=== PATIENT | male | born 1985 | race Caucasian/White ===

== ENCOUNTER 2025-03-09 20:57 | Emergency (ER) | payer OTHER, SELFPAY ==
[2025-03-09 21:10] VITALS: BP 127/83; PULSE 91; RESP 16; TEMP 36.6; O2SAT 93; BMI 25.8
[2025-03-09] MEDS: cephALEXin 500 mg Capsule PO (21:20)
[2025-03-09] MEDS: tetanus-dipt-pertussis 0.5 mL SDV IM (21:21)
--- NOTE | 2025-03-09 22:06 | ED_ITS ---
HPI - Wound/Laceration General: Chief Complaint: Wound/Laceration Stated Complaint: L foot lac from chainsaw Time Seen by Provider: 03/09/25 21:04 Source: patient Mode of arrival: ambulatory Limitations: no limitations History of Present Illness: Patient is a 39-year-old male who presents the emergency department for laceration of left foot. He reportedly accidentally cut his foot through boot with a chainsaw, bleeding controlled on arrival and states she cleaned it thoroughly prior to coming in. Tetanus is not up-to-date. Minor pain reported at this time, no significant contamination. No other symptoms, has remained ambulatory. No neurovascular symptoms reported. Vitals normal. Onset (ago): minute(s) Extremity Location: Left: foot Place: home Patient tetanus UTD: No Context: accidental Associated symptoms: Reports no associated symptoms; Denies chills, fever(s), nausea or vomiting Treatments prior to arrival: bandage Related Data Previous Rx's ?Medication ?Instructions ?Recorded cephalexin 500 mg capsule 500 mg PO BID 7 days #14 cap s 03/09/25 Allergies Allergy/AdvReac Type Severity Reaction Status Date / Time Penicillins Allergy Unknown Verified 03/09/25 21:13 Review of Systems General: Reports: 10 or more systems reviewed and unremarkable except in HPI and below Const: Denies: fever(s) or chills Card: Denies: chest pain Resp: Denies: dyspnea GI: Denies: abdominal pain, nausea, vomiting or diarrhea Musc: Denies: extremity pain or joint pain Skin/Breast: Reports: skin pain, skin tenderness and new lesions (Laceration to left foot); Denies: rash Neuro: Denies: headache(s) Physical Exam Const: COMMON NORMALS: no acute distress, average body habitus, patient oriented x3, no limitations, healthy appearing, alert and well nourished HENMT: COMMON NORMALS: normocephalic and atraumatic HEAD & SCALP: norm ocephalic and atraumatic Neck/C-Spine: COMMON NORMALS: full ROM, no lymphadenopathy, supple and no meningeal signs Resp: COMMON NORMALS: normal respiratory effort, No use of accessory muscles and clear to auscultation bilaterally AUSCULTATION: clear to auscultation bilaterally Cardio: COMMON NORMALS: regular rate and regular rhythm RATE: regular rate RHYTHM: regular rhythm Extremity: COMMON NORMALS: full ROM and capillary refill normal NARRATIVE EXTREMITY EXAM: Neurovascular status intact to left foot. Neuro: COMMON NORMALS: patient oriented x3, moves all extremities, no focal motor deficits and no sensory deficits noted SENSORIUM/ORIENTATION: Yes alert MENINGEAL SIGNS: Yes no meningeal signs Skin: COMMON NORMALS: turgor normal NARRATIVE SKIN EXAM: Flap-like laceration to dorsum of left foot, measuring approximately 3 to 4 cm. This is superficial and there is no obvious foreign body or contamination. No active bleeding. GENERAL SKIN EXAM: turgor normal Procedures Laceration Laceration 1: Site: lower extremity (Foot) Side (If applicable): left Size (cm): 4 Description: flap and clean Depth: simple, single layer Local Anesthetic: lidocaine 2% and with epi Amount of anesthesia used (mL): 8 Pre-repair: wound explored, irrigated extensively and deep structures intact Skin layer closed with: nylon Size (cm): 4-0 Number of sutures: 9 Technique: simple, interrupted Course Vital Signs: Vital signs: Vital Signs Temperature 98 F 03/09/25 21:10 Pulse Rate 91 03/09/25 21:10 Respiratory Rate 16 03/09/25 21:10 Blood Pressure 127/83 03/09/25 21:10 Pulse Oximetry 93 03/09/25 21:10 MDM - Wound/Laceration Medical Decision Making Patient presented with laceration left foot caused by chainsaw. His tetanus was not up-to-date, it was updated today. No active bleeding on arrival did appear clean however was further cleaned with Betadine and normal saline. Neurovascular status was intact. The laceration was repaired, see the procedure note. He will be started on prophylactic Keflex and return precautions were given, such as if there are any signs of infection he will present back to the ED. Discussed conservative therapy and when to have sutures out, all other questions and concerns addressed. No radiology studies performed this visit Discharge Plan Discharge Patient Disposition: Home Clinical Impression: Laceration of dorsum of left foot Condition: Stable Prescriptions: New cephalexin 500 mg capsule 500 mg PO BID 7 Days Qty: 14 0RF Discharge Orders: Discharge ED (Routine); Ordered 03/09/25 Ordered By: Delfino Quiroz Patient Instructions: Laceration (ED) Activity Restrictions/Additional Instructions: Take Keflex as prescribed. Keep the wound clean and dry. When you do clean it, you may dab with warm soap and water and then dab dry afterwards. Sutures out in 7 days with primary care or at urgent care. Monitor for any severe worsening of pain, redness, fevers, or other signs of infection. Ibuprofen/Tylenol for pain. Print Language: Kiswahili Coding Level of Care Code ED Finance And Administration Manager for Leah Gibson
[2025-03-09 22:15] VITALS: BP 107/71; PULSE 82; RESP 16; O2SAT 93
== END 2025-03-09 22:29 | disposition home or self-care (01) ==
PROVIDERS: Emergency Provider Physician Assistant
DX: S91.312A Laceration without foreign body, left foot, initial encounter (principal); W29.3XXA Contact with powered garden and outdoor hand tools and machinery, initial encounter; Z23 Encounter for immunization
CPT/HCPCS: 12002; 90471; 90715; 99283; J9999